=== PATIENT | male | born 1960 | race Caucasian/White ===

== ENCOUNTER 2020-07-27 12:07 | Emergency (ER) | payer OTHER, SELFPAY ==
[2020-07-27 12:23] VITALS: BP 138/93; PULSE 92; RESP 18; TEMP 36.6; O2SAT 98; BMI 25.0
[2020-07-27] MEDS: Diphth,Pertus(ACell),Tet Adult 0.5 ML SYRINGE IM (13:27)
--- NOTE | 2020-07-27 13:37 | ED_ITS ---
HPI - Wound/Laceration General Chief Complaint: Wound/Laceration Stated Complaint: finger lac Time Seen by Provider: 07/27/20 12:45 Source: patient Mode of arrival: ambulatory History of Present Illness HPI narrative: 59-year-old male With no significant past medical history presenting to the ED complaining of laceration to left index finger s/p using a circular saw at work [employer]. Tetanus unknown. Denies any return of the area, numbness, tingling, weakness, decreased ROM Onset (ago): hour(s) Related Data Allergies Allergy/AdvReac Type Severity Reaction Status Date / Time No Known Allergies Allergy Unverified 07/27/20 13:15 Review of Systems Review of Systems: Constitutional: No Fever, No Chills Musculoskeletal: + joint pain, No Myalgias, No Joint Swelling Skin: +laceration Neuro: No Weakness, No Numbness, No Paresthesias Yes all other systems are reviewed and are negative Neurologic: Denies Sensory deficit (Neuro) [facility] Past Medical History Attestation statement: The following information was validated with the patient. Medical History (Updated 07/27/20 @ 13:35 by DOT Soriano) Healthy adult Social History Social History Advance Directives: No Advance Directives Information Provided: Yes Physical Exam Vital Signs: Vital Signs: Last Vital Signs Temp 98 F 07/27/20 12:23 Pulse 92 07/27/20 12:23 Resp 18 07/27/20 12:23 BP 138/93 H 07/27/20 12:23 Pulse Ox 98 07/27/20 12:23 Body Mass Index 25.0 Const: General: cooperative and healthy appearing Orientation/consciousness: patient oriented x3 Limitations: no limitations HENMT: Head: Yes normal to inspection Ears: hearing grossly normal bilaterally General nose exam: Normal external nose present Face and sinus: Yes normal facial exam Eyes: General: appearance normal, both eyes and all related structures EOM: EOMs intact bilaterally Neck: Neck: Yes normal visual inspection and Yes no meningeal signs Resp: Effort & Inspection: normal respiratory effort Cardio: Rate: regular rate Peripheral pulses: radial pulses present Skin: Other: +2cm linear deep laceration noted to left 2nd digit volar aspect bwt MCP and PIP. Tendon visible, no appreciable tendon laceration. FROM intact to digits/hand Rashes: no rashes Neuro: General: patient oriented x3 and no meningeal signs Gait exam (Neuro): Normal gait present Sensory Exam: No Sensory deficit (Neuro) Extrem: General: Yes normal to inspection Procedures Laceration Laceration 1: Site: hand Side (If applicable): left Size (cm): 2 Description: linear Depth: simple, single layer Amount of anesthesia used (mL): 0 Pre-repair: wound explored, irrigated extensively and deep structures intact Skin layer closed with: nylon Size (cm): 4-0 Number of sutures: 3 Technique: simple, interrupted MDM - Wound/Laceration MDM Narrative Medical decision making narrative: Vital signs stable. Patient did not want lidocaine/numbing, wound repaired with 3 sutures and reinforced with Steri- Strips. Discussed with patient he needs to follow-up with orthopedics Medical Records Attestation: I reviewed the patient's medical records. Discharge Plan Discharge Clinical Impression: Laceration Patient Disposition: Home, Self-Care Instructions: Laceration (ED) Additional Instructions: Return to any emergency department or urgent care in 7-10 days to have her stitches taken out Apply bacitracin or Neosporin at home The Steri-Strips to fall off on their own If area begins look infected, red, or there is drainage return to the ED Referrals: Cathy Yanez MD [Emergency Provider] - 1 week (7-10 days) Melissa Fiore MD [Physician] - 2 days Interventions: ED Discharge Assessment Last Done: 07/27/20 13:47 Discharge Date/Time: 07/27/20 13:50
== END 2020-07-27 13:50 | disposition home or self-care (01) ==
PROVIDERS: Emergency Provider Emergency Medicine; PCP Internal Medicine
DX: S61.211A Laceration without foreign body of left index finger without damage to nail, initial encounter (principal); M79.642 Pain in left hand; W29.8XXA Contact with other powered hand tools and household machinery, initial encounter; Y93.9 Activity, unspecified; Y92.9 Unspecified place or not applicable; Y99.0 Civilian activity done for income or pay
CPT/HCPCS: 12001; 90471; 90715; 99283; 99284